=== PATIENT | female | born 1950 | race African-American/Black ===

== ENCOUNTER 2019-10-13 11:03 | Observation (INO) ==
[2019-10-13 11:49] LABS: Basophils # 0.1 10*3/uL (0.0-0.2); Basophils % 0.7 % (0.0-0.8); Eosinophils # 0.5 10*3/uL (0.0-0.87); Hematocrit 30.5 VOL% (35.7-47.0); Hemoglobin 9.7 GM/DL (12.0-16.0); Immature Granulocytes % 0.4 %; Immature Granulocytes Absolute 0.03 #; Lymphocytes # 1.4 10*3/uL (1.4-4.0); Lymphocytes % 19.3 % (21.3-54.2); Mean Corpuscular HGB Conc 31.8 GM/DL (32-36); Mean Corpuscular Volume 96.5 FL (87-102); Monocytes % 8.9 % (1.7-12.7); Neutrophils % 63.7 % (38.7-73.9); Platelet Count 222 T/CUMM (130-400); Red Blood Count 3.16 MC/CUMM (3.8-5.5); Red Cell Distribution Width 16.1 % (9.3-17.3)
[2019-10-13 12:11] LABS: Bilirubin,Total 0.5 MG/DL (0.2-1.0); Calcium 8.7 MG/DL (8.5-10.1); Osmolality,Calculated 276.7 MOS/KG (273-304); Total Protein 6.6 G/DL (6.4-8.3)
[2019-10-13] MEDS ORDERED: ONDANSETRON 4 MG/2 ML VIAL IV PRN (14:05)
[2019-10-13] MEDS ORDERED: ACETAMINOPHEN 325 MG TABLET PO PRN (14:05)
[2019-10-13] MEDS ORDERED: MELOXICAM 7.5 MG TABLET PO PRN (17:15)
[2019-10-13] MEDS ORDERED: ADALIMUMAB SUBCUT SCH (17:15)
[2019-10-13] MEDS: ALBUTEROL/IPRATROPIUM 3 ML NEB RESP TX SCH (19:15)
[2019-10-13] MEDS: TRIAMCINOLONE 0.1% OINT 15 GM TUBE TOP SCH (21:01)
[2019-10-14] MEDS: ALBUTEROL/IPRATROPIUM 3 ML NEB RESP TX SCH ×4 (00:26→21:00)
[2019-10-14 02:32] LABS: Apearance,Urine CLEAR (Clear); Bilirubin,Urine Negative (Negative); Blood, Urine Negative (Negative); Glucose,Urine (UA) Negative (Negative); Ketones,Urine Negative (Negative); Mucus,Urine Occasional /LPF (Occasional); Nitrite,Urine Negative (Negative); Protein,Urine Negative; RBC,Urine 4 /HPF (0-4); Squamous Epithelial Cell,Urine Occasional /HPF (0-10); Urine Color Yellow (Yellow); Urine Specific Gravity 1.019 (1.001-1.035); Urine Urobilinogen < 2.0 EU/DL (0.2-1.0); WBC,Urine 2 /HPF (0-6)
[2019-10-14 05:11] LABS: Basophils # 0.1 10*3/uL (0.0-0.2); Basophils % 0.7 % (0.0-0.8); Eosinophils # 0.6 10*3/uL (0.0-0.87); Eosinophils % 8.7 % (0.00-10.9); Hematocrit 29.2 VOL% (35.7-47.0); Hemoglobin 9.2 GM/DL (12.0-16.0); Immature Granulocytes % 0.3 %; Immature Granulocytes Absolute 0.02 #; Lymphocytes # 1.9 10*3/uL (1.4-4.0); Lymphocytes % 25.4 % (21.3-54.2); Mean Corpuscular HGB Conc 31.5 GM/DL (32-36); Mean Platelet Volume 10.2 FL (9.6-12.0); Monocytes % 9.8 % (1.7-12.7); Neutrophils % 55.1 % (38.7-73.9); Platelet Count 207 T/CUMM (130-400); Red Blood Count 3.01 MC/CUMM (3.8-5.5); White Blood Count 7.4 T/CUMM (4-12)
[2019-10-14 05:58] LABS: Calcium 8.4 MG/DL (8.5-10.1); Osmolality,Calculated 275.5 MOS/KG (273-304); Thyroid Stimulating Hormone 1.99 uIU/ml (0.358-3.74); VLDL CHOLESTEROL 14.6 MG/DL
[2019-10-14] MEDS ORDERED: TRIAMCINOLONE 0.1% OINT 80 GM TUBE TOP ONE (08:30)
[2019-10-14] MEDS: TRIAMCINOLONE 0.1% OINT 15 GM TUBE TOP SCH (08:46)
[2019-10-14] MEDS: ENOXAPARIN 40 MG/0.4 ML SYRINGE SUBCUT SCH (08:46)
[2019-10-14] MEDS: PANTOPRAZOLE 40 MG TABLET PO SCH (08:46)
[2019-10-14] MEDS: amLODIPine 10 MG TABLET PO SCH (08:46)
[2019-10-14] MEDS: LISINOPRIL/HCTZ 20-25 MG TABLET PO SCH (08:46)
[2019-10-14] MEDS: TAMOXIFEN 10 MG TABLET PO SCH (08:46)
[2019-10-14] MEDS: LORATADINE 10 MG TABLET PO SCH (08:46)
[2019-10-14] MEDS ORDERED: TRIAMCINOLONE 0.1% OINT 80 GM TUBE TOP SCH (10:00)
[2019-10-14] MEDS: SKIN HEALING OINT (AQUAPHOR) 50 GM TUBE TOP SCH ×2 (11:07→21:08)
[2019-10-14] MEDS: TRIAMCINOLONE 0.1% OINT 80 GM TUBE TOP SCH ×2 (11:07→21:08)
[2019-10-14] MEDS ORDERED: MORPHINE 4 MG/1 ML VIAL IV PRN (17:47)
[2019-10-15] MEDS: ALBUTEROL/IPRATROPIUM 3 ML NEB RESP TX SCH ×2 (02:25→07:20)
[2019-10-15 06:42] LABS: Basophils % 0.7 % (0.0-0.8); Eosinophils # 0.3 10*3/uL (0.0-0.87); Eosinophils % 5.2 % (0.00-10.9); Hematocrit 25.9 VOL% (35.7-47.0); Hemoglobin 8.3 GM/DL (12.0-16.0); Immature Granulocytes % 0.3 %; Immature Granulocytes Absolute 0.02 #; Lymphocytes # 1.3 10*3/uL (1.4-4.0); Lymphocytes % 22.5 % (21.3-54.2); Mean Corpuscular Volume 96.3 FL (87-102); Mean Platelet Volume 10.1 FL (9.6-12.0); Neutrophils % 59.3 % (38.7-73.9); Platelet Count 191 T/CUMM (130-400); Red Blood Count 2.69 MC/CUMM (3.8-5.5); Red Cell Distribution Width 16.2 % (9.3-17.3); White Blood Count 5.8 T/CUMM (4-12)
[2019-10-15 07:20] LABS: Calcium 8.3 MG/DL (8.5-10.1); Osmolality,Calculated 278.4 MOS/KG (273-304)
[2019-10-15 08:22] LABS: % Iron Saturation 26.5 % (18-50)
[2019-10-15] MEDS: TRIAMCINOLONE 0.1% OINT 454 GM JAR TOP SCH ×2 (08:40→21:35)
[2019-10-15] MEDS: SKIN HEALING OINT (AQUAPHOR) 50 GM TUBE TOP SCH ×2 (08:40→21:35)
[2019-10-15] MEDS: ENOXAPARIN 40 MG/0.4 ML SYRINGE SUBCUT SCH (08:40)
[2019-10-15] MEDS: TAMOXIFEN 10 MG TABLET PO SCH (08:41)
[2019-10-15] MEDS: LISINOPRIL/HCTZ 20-25 MG TABLET PO SCH (08:41)
[2019-10-15] MEDS: amLODIPine 10 MG TABLET PO SCH (08:41)
[2019-10-15] MEDS: PANTOPRAZOLE 40 MG TABLET PO SCH (08:41)
[2019-10-15] MEDS: LORATADINE 10 MG TABLET PO SCH (08:41)
[2019-10-15 08:54] LABS: Folate 3.5 NG/ML (5.4-24.0)
[2019-10-15] MEDS ORDERED: ALBUTEROL/IPRATROPIUM 3 ML NEB RESP TX PRN (11:28)
[2019-10-16 04:54] LABS: Basophils % 0.6 % (0.0-0.8); Eosinophils # 0.3 10*3/uL (0.0-0.87); Eosinophils % 5.1 % (0.00-10.9); Hematocrit 27.2 VOL% (35.7-47.0); Hemoglobin 8.6 GM/DL (12.0-16.0); Immature Granulocytes % 0.5 %; Immature Granulocytes Absolute 0.03 #; Lymphocytes # 1.6 10*3/uL (1.4-4.0); Lymphocytes % 26.3 % (21.3-54.2); Mean Corpuscular HGB Conc 31.6 GM/DL (32-36); Mean Corpuscular Volume 95.8 FL (87-102); Mean Platelet Volume 9.9 FL (9.6-12.0); Monocytes % 11.4 % (1.7-12.7); Neutrophils % 56.1 % (38.7-73.9); Platelet Count 193 T/CUMM (130-400); Red Blood Count 2.84 MC/CUMM (3.8-5.5); Red Cell Distribution Width 15.9 % (9.3-17.3); White Blood Count 6.2 T/CUMM (4-12)
[2019-10-16 05:12] LABS: Calcium 8.4 MG/DL (8.5-10.1); Osmolality,Calculated 275.5 MOS/KG (273-304)
[2019-10-16] MEDS: LORATADINE 10 MG TABLET PO SCH (08:38)
[2019-10-16] MEDS: PANTOPRAZOLE 40 MG TABLET PO SCH (08:38)
[2019-10-16] MEDS: LISINOPRIL/HCTZ 20-25 MG TABLET PO SCH (08:38)
[2019-10-16] MEDS: ENOXAPARIN 40 MG/0.4 ML SYRINGE SUBCUT SCH (08:38)
[2019-10-16] MEDS: TAMOXIFEN 10 MG TABLET PO SCH (08:38)
[2019-10-16] MEDS: SKIN HEALING OINT (AQUAPHOR) 50 GM TUBE TOP SCH ×2 (08:38→21:33)
[2019-10-16] MEDS: amLODIPine 10 MG TABLET PO SCH (08:38)
[2019-10-16] MEDS: TRIAMCINOLONE 0.1% OINT 454 GM JAR TOP SCH ×2 (08:38→21:33)
[2019-10-17 08:02] VITALS: BP 121/64
[2019-10-17] MEDS: LISINOPRIL/HCTZ 20-25 MG TABLET PO SCH (09:10)
[2019-10-17] MEDS: TAMOXIFEN 10 MG TABLET PO SCH (09:10)
[2019-10-17] MEDS: PANTOPRAZOLE 40 MG TABLET PO SCH (09:11)
[2019-10-17] MEDS: amLODIPine 10 MG TABLET PO SCH (09:11)
[2019-10-17] MEDS: SKIN HEALING OINT (AQUAPHOR) 50 GM TUBE TOP SCH (09:11)
[2019-10-17] MEDS: TRIAMCINOLONE 0.1% OINT 454 GM JAR TOP SCH (09:11)
[2019-10-17] MEDS: LORATADINE 10 MG TABLET PO SCH (09:11)
[2019-10-17] MEDS: ENOXAPARIN 40 MG/0.4 ML SYRINGE SUBCUT SCH (09:11)
== END 2019-10-17 10:52 | disposition home or self-care (01) ==
LOC: EDUNIT# → EDBD → N.ED 11:03 → N.EDINP 11:03 → SUPCPDRO 14:05 → SUATTDRO 14:05 → N.5E 15:55
PROVIDERS: ADMIT Internal Medicine; ATTEND Internal Medicine Geriatric Medicine